=== PATIENT | male | born 1980 | race Caucasian/White ===

== ENCOUNTER 2017-04-29 13:44 | Observation (INO) | payer OTHER ==
[2017-04-29 14:43] LABS: ALT (SGPT) 38 U/L (8-55); AST (SGOT) 22 U/L (5-34); Alkaline Phosphatase 74 U/L (40-150); Anion Gap 12 mmol/L (10-20); BUN (Urea Nitrogen) 13 mg/dL (8.9-20.6); Bilirubin, Total 0.4 mg/dL (0.2-1.2); Calc. Creatinine Clearance 0 mL/min (70-130); Calcium 9.3 mg/dL (7.8-10.44); Carbon Dioxide 23 mmol/L (22-29); Chloride 109 mmol/L (98-107); Estimated GFR-MDRD 73
[2017-04-29 14:47] LABS: Troponin I Less than 0.010 ng/mL (< 0.028)
[2017-04-29 14:53] LABS: Band 3 % (5-11); Hematocrit 47.9 % (42.0-52.0); Mean Platelet Volume 5.9 fL (7.4-10.4); Neutrophil 55 % (42-75); Red Blood Cell (RBC) Count 5.09 mill/uL (4.70-6.10)
[2017-04-29] MEDS ORDERED: Aspirin 325 MG TAB ONE (15:19)
--- NOTE | 2017-04-29 15:20 | CT ---
NONCONTRAST HEAD CT: Date: 04/29/17 HISTORY: Blurred vision. Auditory changes. Lightheadedness. COMPARISON: None. TECHNIQUE: Noncontrast head CT is performed from skull base to skull vertex. FINDINGS: No parenchymal hemorrhage. No extra-axial hematoma. No midline shift. Basilar cisterns are patent. Br ain volume, age-appropriate. Cortical hyatt-white matter differentiation is preserved. Ventricles and sulci are patent and symmetric. Calvarium is intact. Bilateral ethmoidal sinus disease. Mastoid air c ells are adequately aerated. Calvarium is intact. IMPRESSION: No acute intracranial process. POS: [facility]
[2017-04-29 17:18] VITALS: BMI 37.5
[2017-04-29] MEDS ORDERED: Acetaminophen 325 MG TAB PO PRN (18:06)
[2017-04-29] MEDS ORDERED: Zolpidem Tartrate 5 MG TAB PO PRN (18:06)
--- NOTE | 2017-04-29 22:05 | ULT ---
ULTRASOUND CAROTID DOPPLER 04/29/17 HISTORY: TIA. COMPARISON: None. FINDINGS: Ultrasound hyatt scale, color doppler and spectral analysis of the extracranial carotid and vertebral arteries was performed with the linear transducer. No elevated peak systolic velocity to suggest hemo dynamically significant stenosis. Antegrade flow to both vertebral arteries. IMPRESSION: No hemodynamically significant stenosis. POS: [facility]
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
[2017-04-30 11:52] VITALS: BP 140/68; TEMP 98.3
--- NOTE | 2017-04-30 13:51 | PRG ---
DATE OF SERVICE: 04/30/2017 Mr. Rodriguez is doing well today. He has had no further episodes of near syncope. He is feeling rivas te well otherwise. He has been up and about through the hospital. PHYSICAL EXAMINATION: VITAL SIGNS: Temperature 98.3, BP 140/68, pulse 83, respirations 16. GENERAL: He is alert, active, in no distress. LUNGS: Clear. HEART: Reveals no murmur. NEUROLOGIC: Cranial nerves II-XII are intact. Carotid ultrasound is noted to be completely normal. MRI is still pending due to machine malfunction . PLAN: The patient can be discharged today. He will get outpatient MRI which can be scheduled throug h the hospital. He will follow up with me in 1 week.
--- NOTE | 2017-05-01 06:42 | DIS ---
HOSPITAL COURSE: The patient is a 37-year-old male, who was admitted with a presyncopal episode cons isting of changes in vision, difficulty speaking without other neurological deficits, this lasted for approximately 4 minutes and spontaneously resolved. He was evaluated in the emergency room. CT sca n of the brain was obtained, which was normal. He was subsequently admitted to the hospital and plac ed on aspirin. Carotid ultrasound was obtained, which showed no evidence of any . MRI of the b rain was ordered, but due to technical malfunctions, MRI was not able to be done. The patient's hosp ital course showed him to be totally alert, active without any problems. No evidence of any cardiac difficulties was otherwise noted. He was able to be discharged home on aspirin 81 mg daily. Outpati ent MRI to be scheduled and follow up with me in 1 week.
== END 2017-04-30 14:24 | disposition home or self-care (01) ==
LOC: SCSER 13:44 → 2SE 15:30
PROVIDERS: ADMIT Family Medicine; ATTEND Family Medicine
DX: R55 Syncope and collapse (principal)
CPT/HCPCS: 70450; 80053; 84484; 85025; 93005; 93880; G0378

== ENCOUNTER 2017-05-11 15:27 | Outpatient (CLI) | payer OTHER ==
--- NOTE | 2017-05-11 18:33 | MRI ---
MRI OF THE BRAIN WITHOUT CONTRAST: History: Blurry vision. History of TIA. Sudden onset of lightheadedness and left sided headache. Comparison: None. Technique: Multiplanar, multisequence MRI images were obtained of the brain without contrast. FINDINGS: The brain demonstrates normal signal intensity on all obtained sequences. No restricted diffusion is seen to suggest an acute infarction. There is no evidence of hydrocephalus, intracranial hemorrhage, or extraaxial fluid. The expected sandie w voids are present. The corpus callosum, pituitary, and craniocervical junction are unremarkable. The calvarium and overlying soft tissues are unremarkable. The visualized paranasal sinuses and masto id air cells are well aerated. IMPRESSION: No evidence of acute intracranial abnormality. POS: [facility]
== END 2017-05-11 15:28 | disposition home or self-care (01) ==
LOC: SCSMRI 15:27
PROVIDERS: ATTEND Family Medicine
DX: G45.9 Transient cerebral ischemic attack, unspecified (principal); R55 Syncope and collapse
CPT/HCPCS: 70551